=== PATIENT | male | born 2000 | race Caucasian/White ===

== ENCOUNTER 2020-11-03 11:18 | Outpatient (CLI) | payer OTHER, SELFPAY ==
[2020-11-04 20:41] LABS: Troponin T, 5th gen, P 8 ng/L (<=15)
== END 2020-11-03 11:19 | disposition home or self-care (01) ==
PROVIDERS: Visit Provider Physician Assistant
DX: Z86.16 Personal history of COVID-19 (principal)
CPT/HCPCS: 36415; 84484

== ENCOUNTER 2020-11-03 11:37 | Outpatient (CLI) | payer OTHER, SELFPAY ==
--- NOTE | 2020-11-03 13:15 | RT.EKG_ITS ---
APPROVED REPORT Exam: Resting ECG Patient Location: O HR:114 bpm ECG Measurements Heart Rate 114 AXIS TX 169 P 49 QRSd 92 QRS 27 QT 328 T 26 QTc 451 Conclusion Sinus tachycardia...rate> 99
== END 2020-11-03 11:38 | disposition home or self-care (01) ==
PROVIDERS: Visit Provider Physician Assistant
DX: Z86.16 Personal history of COVID-19 (principal); R00.0 Tachycardia, unspecified
CPT/HCPCS: 93005; 93010